=== PATIENT | female | born 1970 | race African-American/Black ===

== ENCOUNTER 2019-02-03 08:22 | Outpatient (RCR) | payer MEDICAID, SELFPAY ==
[2019-02-03 08:55] VITALS: BP 152/88; PULSE 78; RESP 16; TEMP 36.2; BMI 23.7
--- NOTE | 2019-02-03 23:03 | PCM.CONHBO ---
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 She was diagnosed with invasive ductal carcinoma of the right breast in July 25 and subsequently received a total of [id number] of radiation therapy following which she sustained a burn and deep tissue pain. Conservative measures so far with no symptomatic improvement. 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) Type 2 diabetes mellitus (Chronic) Allergies/Adverse Reactions: Allergies Penicillins [PCN] Allergy (Verified 02/03/19 10:06) Unknown prochlorperazine [From Compazine] Adverse Reaction (Verified 02/03/19 10:06) Unknown Iqmbmmk-Uyi-Hkp Reductase Inhibitor Adverse Reaction (Verified 02/03/19 10:06) Unknown Smoking Status: Light Smoker (<10/day) Review of Systems Constitutional: Denies: Anorexia, Chills, Fever Eyes: Denies: Pain, Redness HEENT: Denies: Difficulty Hearing, Difficulty Swallowing Cardiovascular: Denies: Chest Pain, Chest Pressure, Chest Tightness Respiratory: Denies: Cough, Hemoptysis Gastrointestinal: Denies: Abdominal Pain, Hematemesis, Vomiting Genitourinary: Denies: Hematuria Skin: Denies: Jaundice - Physical Exam Vital Signs Temp Pulse Resp BP 97.1 F L 78 16 152/88 H 02/03/19 08:55 02/03/19 08:55 02/03/19 08:55 02/03/19 08:55 General: Alert, Oriented x3, Cooperative, No apparent distress HEENT: Atraumatic, Normocephalic Neck: Supple Lungs: Normal air movement Cardiovascular: Regular rate, Regular Rhythm, Normal S1, Normal S2 Abdomen: Soft, Non Tender Extremities: No cyanosis, No edema Wound Measurements and Assessment WC - Nurse 1 - General Ulcer Measurement Start: 02/03/19 08:54 Freq: Status: Active Protocol: Activity Type Activity Date Activity User E-Sign Co-Sign Detail Recorded Client Recorded Date Recorded By Document 02/03/19 08:55 DV [id number] 02/03/19 09:08 DV 02/03/19 08:55 W[facility] Nurse 1 [Edema Assessment] -Lower Limb Edema Present No Musculoskeletal: No Muscle Wasting Neurological: Cranial nerves II-XII grossly intact Psych/Mental Status: Normal Affect Assessment/Plan Active Problems 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 Hyperbaric Oxygen Therapy would be an essential adjunct in the resolution and treatment of this patient's presenting problem. This patient has sufficient physiologic and psychological stamina to undergo the rigors of hyperbaric oxygen therapy. As such, I recommend the following: Hyperbaric Oxygen Treatments at 2.0 LADONNA in 100% Oxygen for 90 minutes per treatment, for 40 treatments. I have discussed the possible benefits of hyperbaric oxygen therapy with this patient. I have also presented and described the risks, including: air gas embolism, pneumothorax, central nervous system and pulmonary oxygen toxicity, flash pulmonary edema, hypoglycemia, reversible visual refractive changes, ear and sinus garret-trauma, and confinement anxiety. The patient has verbalized understanding of these risks, and is still wanting to undergo hyperbaric oxygen therapy. The patient understands the significant time and transportation commitment involved in daily treatments of up to two hours duration and has stated that they are willing to commit to this therapy. She has an appointment scheduled with her eye neonatal critical care nurse due to concern for blurring of her vision. We would get clearance prior to commencement of HBO therapy. She is also scheduled to start Chemotherapy with a HER2 Inhibitor. This however is not a relative contraindication. If significant pain and discomfort persist, it might be worthwhile to not delay HBO therapy till after Chemotherapy.
== END 2019-02-03 23:59 ==
LOC: WC 08:22
PROVIDERS: Visit Provider Internal Medicine
DX: L59.8 Other specified disorders of the skin and subcutaneous tissue related to radiation (principal); C50.919 Malignant neoplasm of unspecified site of unspecified female breast; E11.9 Type 2 diabetes mellitus without complications; F17.200 Nicotine dependence, unspecified, uncomplicated
CPT/HCPCS: 99203; G0463